=== PATIENT | female | born 1940 | race Caucasian/White ===

== ENCOUNTER 2016-12-29 06:51 | Day surgery (SDC) | payer MEDICARE, OTHER ==
[~2016-12-29 06:51] MED LIST: ASAB PO; COREG12 PO; COREG25 PO; ENDOCET1 TAB PO; GLUCOPHAGE1000 MG PO; GLUCOTRO10 PO; L40 PO; LEVEMFLXPN SC; LEVEMIR SQ; NITROSTAT0.4 MG SL; PRIN10 PO; PRIN2.5 PO; PRIN5 PO; SUCR PO; ULTRAM50 PO
== END 2016-12-29 09:34 | disposition home or self-care (01) ==
LOC: SDC 06:51
PROVIDERS: Orthopaedic Surgery
PROC: 3E0R3BZ Introduction of Anesthetic Agent into Spinal Canal, Percutaneous Approach (ICD-10-PCS; 2016-12-29)
PROC: B01BYZZ Fluoroscopy of Spinal Cord using Other Contrast (ICD-10-PCS; 2016-12-29)
PROC: 3E0R33Z Introduction of Anti-inflammatory into Spinal Canal, Percutaneous Approach (ICD-10-PCS; principal; 2016-12-29 07:45)
DX: M54.16 Radiculopathy, lumbar region (principal); E11.9 Type 2 diabetes mellitus without complications; Z88.0 Allergy status to penicillin; Z88.8 Allergy status to other drugs, medicaments and biological substances; Z79.82 Long term (current) use of aspirin; Z79.4 Long term (current) use of insulin; Z79.899 Other long term (current) drug therapy; Z79.891 Long term (current) use of opiate analgesic; Z98.41 Cataract extraction status, right eye; Z98.42 Cataract extraction status, left eye; Z98.890 Other specified postprocedural states; Z90.89 Acquired absence of other organs
CPT/HCPCS: 82962; J1040; J2250; J3010; Q9967